=== PATIENT | male | born 1990 | race Caucasian/White ===

== ENCOUNTER 2022-07-16 13:30 | Emergency (ER) | payer BC, OTHER ==
[~2022-07-16] VITALS: Ht 190 cm; Wt 103.2 kg
--- NOTE | 2022-07-16 13:37 | ED Upper Extremity ---
General Chief Complaint: Laceration Stated Complaint: LT THUMB LAC History of Present Illness Date Seen by Provider: Jul 16, 2022 Time Seen by Provider: 13:35 Initial Comments 31-year-old male is here with complaints of left thumb laceration which she sustained with a utility knife while cutting something. Patient is able to move his thumb without any difficulty. Denies sensory loss. Allergies and Home Medications Patient Home Medication List Home Medication List Reviewed: Yes Review of Systems Constitutional: no symptoms reported EENTM: no symptoms reported Respiratory: no symptoms reported Cardiovascular: no symptoms reported Gastrointestinal: no symptoms reported Genitourinary: no symptoms reported Skin: lesions Psychiatric/Neurological: No Symptoms Reported Physical Exam Vital Signs Vital Signs - First Documented 07/16/22 13:40 Temp 36.0 Pulse 66 Resp 16 B/P (MAP) 149/74 (99) Pulse Ox 98 O2 Delivery Room Air Capillary Refill : Height, Weight, BMI Height: '" Weight: lbs. oz. kg; BMI Method: General Appearance: WD/WN, no apparent distress HEENT: PERRL/EOMI Hand: normal ROM, Left, laceration (flap laceration on medial border of left thumb, about 7cm on each side of flap, no foreign body, minimal bleeding, extent to dermal layer only. Ligament and tendon intact with normal unrestricted ROM. NV bundle intact.) Neurologic/Tendon: normal sensation, normal motor functions, normal tendon functions, no evidence tendon injury Neurologic/Psychiatric: no motor/sensory deficits, alert, normal mood/affect, oriented x 3 Progress/Results/Core Measures Results/Orders Vital Signs/I&O 07/16/22 13:40 Temp 36.0 Pulse 66 Resp 16 B/P (MAP) 149/74 (99) Pulse Ox 98 O2 Delivery Room Air Progress Progress Note : Progress Note 1. LEFT THUMB LACERATION - No ligament or tendon injury as per exam - 14 interrupted sutures placed - Return to ER or clinic for suture removal in 7 to 10 days - Wound care instructions given - Pain control with Ibuprofen and ice application - Keflex 500mg bid for 5 days : prophylaxis - Tetanus up to date: had it within the last 5 years Departure Impression Primary Impression: Laceration of left thumb Qualified Codes: S61.012A - Laceration without foreign body of left thumb without damage to nail, initial encounter Disposition: 01 HOME, SELF-CARE Condition: Improved Departure-Patient Inst. Referrals: NO,LOCAL PHYSICIAN (PCP/Family) Primary Care Physician Patient Instructions: Laceration Repair With Stitches ED, Wound Care ED Add. Discharge Instructions: Return to ER or clinic for suture removal in 7 to 10 days Wound care instructions given Pain control with Ibuprofen and ice application - 14 interrupted sutures placed - Keflex 500mg bid for 5 days All discharge instructions reviewed with patient and/or family. Voiced understanding. Scripts Cephalexin (Cephalexin) 500 Mg Tablet 500 MG PO BID for 5 Days, #10 TAB Prov: KOBE MEJIA MD 07/16/22 Work/School Note: Work Release Form Date Seen in the Emergency Department: Jul 16, 2022 Return to Work: Jul 24, 2022 Restrictions: Follow Up With [facility] Other Restrictions Listed Below: Wound must be kept clean, free of dust and strenuous activity to left hand KOBE MEJIA MD Jul 16, 2022 13:37
[2022-07-16 13:40] VITALS: BP 149/74
[2022-07-16] MEDS ORDERED: CEPH500T PO (16:07)
[2022-07-16] MEDS ORDERED: CEPHALEXIN 250 MG (KEFLEX) CAP PO STA (16:11)
== END 2022-07-16 16:15 | disposition home or self-care (01) ==
LOC: EDUNIT# 13:30 → ER FS 13:31
DX: S61.012A Laceration without foreign body of left thumb without damage to nail, initial encounter (principal); W26.0XXA Contact with knife, initial encounter
CPT/HCPCS: 12001; 64450